=== PATIENT | female | born 1960 | race African-American/Black ===

== ENCOUNTER 2020-11-10 20:19 | Observation (INO) ==
[2020-11-10] MEDS ORDERED: ONDANSETRON 4 MG/2 ML VIAL IV STA (20:51)
[2020-11-10] MEDS ORDERED: ASPIRIN 325 MG TABLET PO STA (20:51)
[2020-11-10] MEDS ORDERED: MORPHINE 4 MG/1 ML VIAL IV STA (20:51)
[2020-11-10] MEDS ORDERED: FUROSEMIDE 100 MG/10 ML VIAL IV STA (20:51)
[2020-11-10] MEDS ORDERED: DILTIAZEM 50 MG/10 ML VIAL IV STA (20:51)
[2020-11-10] MEDS ORDERED: NITROGLYCERIN 2% OINT 1 INCH/GM PACK TOP STA (20:51)
[2020-11-10] MEDS ORDERED: methylPREDNISolone SOD SUC 125 MG/2 ML VIAL IV STA (20:58)
[2020-11-10 21:45] LABS: Basophils % 0.7 % (0.0-0.8); Eosinophils # 0.2 10*3/uL (0.0-0.87); Eosinophils % 2.7 % (0.00-10.9); Hemoglobin 14.9 GM/DL (12.0-16.0); Immature Granulocytes % 0.2 %; Immature Granulocytes Absolute 0.01 #; Lymphocytes # 2.6 10*3/uL (1.4-4.0); Lymphocytes % 43.7 % (21.3-54.2); Mean Corpuscular HGB Conc 33.9 GM/DL (32-36); Mean Corpuscular Volume 90.3 FL (87-102); Mean Platelet Volume 10.2 FL (9.6-12.0); Monocytes % 7.2 % (1.7-12.7); Neutrophils % 45.5 % (38.7-73.9); Platelet Count 307 T/CUMM (130-400); Red Blood Count 4.87 MC/CUMM (3.8-5.5); Red Cell Distribution Width 13.1 % (9.3-17.3)
[2020-11-10 21:54] LABS: Bilirubin,Urine Negative (Negative); Blood, Urine Negative (Negative); Glucose,Urine (UA) Negative (Negative); Ketones,Urine Negative (Negative); Mucus,Urine Occasional /LPF (Occasional); Nitrite,Urine Negative (Negative); Protein,Urine 30 MG/DL; RBC,Urine 3 /HPF (0-4); Squamous Epithelial Cell,Urine Occasional /HPF (0-10); Urine Appearance CLEAR (Clear); Urine Color Yellow (Yellow); Urine Specific Gravity 1.021 (1.001-1.035); WBC,Urine 1 /HPF (0-6)
[2020-11-10 21:55] LABS: PT Patient Result 10.3 SECS (9.8-11.9)
[2020-11-10 22:10] LABS: Alanine Aminotransferase 16 U/L (13-56); Albumin 3.5 G/DL (3.4-5.0); Alkaline Phosphatase 119 U/L (45-117); Aspartate Amino Transferase 17 U/L (0-37); Bilirubin,Total < 0.39 MG/DL (0.2-1.0); Blood Urea Nitrogen 10 MG/DL (7-18); Calcium 8.7 MG/DL (8.5-10.1); Carbon Dioxide 26 MMOL/L (21-32); Estimated Glom Filtration Rate 90 ML/MIN; Glucose 112 MG/DL (74-106); Osmolality,Calculated 276.5 MOS/KG (273-304); Potassium 3.6 MMOL/L (3.5-5.1); Sodium 139 MMOL/L (136-145); Total Protein 8.2 G/DL (5.0-7.5); Troponin I < 0.015 NG/ML (0.00-0.045)
[2020-11-10 22:20] LABS: Eosinophils 2 % (0-10); Lymphocytes 47 % (20-55); Segmented Neutrophils 47 % (50-85); Total Cells Counted 100
[2020-11-10 22:30] LABS: Microcytosis Slight; Platelet Estimate Decreased; Reactive Lymphocytes Few; Smudge Cells Few; Tear Drop Cells 1+
[2020-11-10 23:48] LABS: Barbiturates Screen,Urine Negative (Negative); Benzodiazepines Screen,Urine Negative (Negative); Cannabinoid Screen,Urine Negative (Negative); Opiate Screen,Urine Negative (Negative); Phencyclidine Screen,Urine Negative (Negative)
[2020-11-11] MEDS ORDERED: LABETALOL 20 MG/4 ML SYRINGE IV PRN (00:51)
[2020-11-11] MEDS: ACETAMINOPHEN 325 MG TABLET PO PRN ×2 (03:39→18:54)
[2020-11-11 07:51] LABS: Calcium 8.5 MG/DL (8.5-10.1); Osmolality,Calculated 278.8 MOS/KG (273-304); Potassium 4.1 MMOL/L (3.5-5.1); Risk Ratio 4.89; VLDL CHOLESTEROL 7.4 MG/DL
[2020-11-11] MEDS: ASPIRIN 325 MG TABLET PO SCH (09:34)
[2020-11-11] MEDS: ENOXAPARIN 40 MG/0.4 ML SYRINGE SUBCUT SCH (09:35)
[2020-11-11] MEDS ORDERED: ZALEPLON 5 MG CAPSULE PO PRN (19:16)
[2020-11-11] MEDS ORDERED: ATORVASTATIN 20 MG TABLET PO SCH (21:00)
[2020-11-12 05:42] LABS: Basophils % 0.3 % (0.0-0.8); Hematocrit 36.4 VOL% (35.7-47.0); Hemoglobin 11.7 GM/DL (12.0-16.0); Immature Granulocytes % 0.3 %; Immature Granulocytes Absolute 0.03 #; Lymphocytes # 3.2 10*3/uL (1.4-4.0); Lymphocytes % 33.6 % (21.3-54.2); Mean Corpuscular HGB Conc 32.1 GM/DL (32-36); Mean Corpuscular Volume 92.9 FL (87-102); Mean Platelet Volume 10.3 FL (9.6-12.0); Monocytes % 7.4 % (1.7-12.7); Neutrophils % 58.4 % (38.7-73.9); Platelet Count 351 T/CUMM (130-400); Red Blood Count 3.92 MC/CUMM (3.8-5.5); Red Cell Distribution Width 13.2 % (9.3-17.3); White Blood Count 9.5 T/CUMM (4-12)
[2020-11-12 06:10] LABS: Calcium 8.2 MG/DL (8.5-10.1); Potassium 3.8 MMOL/L (3.5-5.1)
[2020-11-12] MEDS: ENOXAPARIN 40 MG/0.4 ML SYRINGE SUBCUT SCH (09:31)
[2020-11-12] MEDS: ASPIRIN 325 MG TABLET PO SCH (09:31)
[2020-11-12 11:45] VITALS: BP 130/79
== END 2020-11-12 15:15 | disposition home or self-care (01) ==
LOC: N.ED 20:19 → N.EDINP 20:19 → N.4E 11-11 02:48
PROVIDERS: ADMIT Internal Medicine; ATTEND Internal Medicine

== ENCOUNTER 2020-11-12 18:43 | Observation (INO) ==
[2020-11-12] MEDS ORDERED: hydrALAZINE 20 MG/1 ML VIAL IV STA (19:36)
[2020-11-12] MEDS ORDERED: ONDANSETRON 4 MG/2 ML VIAL IV STA ×2 (19:36→20:42)
[2020-11-12 19:56] LABS: Basophils # 0.1 10*3/uL (0.0-0.2); Basophils % 0.6 % (0.0-0.8); Eosinophils % 0.3 % (0.00-10.9); Hematocrit 40.1 VOL% (35.7-47.0); Immature Granulocytes % 0.3 %; Immature Granulocytes Absolute 0.03 #; Lymphocytes # 4.3 10*3/uL (1.4-4.0); Lymphocytes % 43.6 % (21.3-54.2); Mean Corpuscular HGB Conc 32.4 GM/DL (32-36); Mean Corpuscular Volume 91.3 FL (87-102); Mean Platelet Volume 10.6 FL (9.6-12.0); Monocytes % 6.7 % (1.7-12.7); Neutrophils % 48.5 % (38.7-73.9); Platelet Count 387 T/CUMM (130-400); Red Blood Count 4.39 MC/CUMM (3.8-5.5); Red Cell Distribution Width 13.1 % (9.3-17.3); White Blood Count 9.8 T/CUMM (4-12)
[2020-11-12 20:05] LABS: PT Patient Result 10.5 SECS (9.8-11.9)
[2020-11-12 20:11] LABS: Albumin 3.6 G/DL (3.4-5.0); Bilirubin,Total 0.4 MG/DL (0.2-1.0); Calcium 8.2 MG/DL (8.5-10.1); Potassium 3.4 MMOL/L (3.5-5.1); Total Protein 8.1 G/DL (5.0-7.5)
[2020-11-12] MEDS ORDERED: POTASSIUM CHLORIDE 20 MEQ TABLET PO STA (20:26)
[2020-11-12 20:29] LABS: Anisocytosis 1+; Hypochromasia Slight; Lymphocytes 47 % (20-55); Platelet Estimate Adequate; Segmented Neutrophils 47 % (50-85); Total Cells Counted 100
[2020-11-12 20:35] LABS: Bilirubin,Urine Negative (Negative); Blood, Urine Negative (Negative); Glucose,Urine (UA) Negative (Negative); Ketones,Urine Negative (Negative); Mucus,Urine Occasional /LPF (Occasional); Nitrite,Urine Negative (Negative); Protein,Urine Negative; RBC,Urine 2 /HPF (0-4); Squamous Epithelial Cell,Urine Occasional /HPF (0-10); Urine Appearance CLEAR (Clear); Urine Color Yellow (Yellow); Urine Specific Gravity 1.013 (1.001-1.035); WBC,Urine 1 /HPF (0-6)
[2020-11-12] MEDS ORDERED: SODIUM CHLORIDE 0.9% 1,000 ML IV STA (20:42)
[2020-11-12] MEDS ORDERED: ENOXAPARIN 100 MG/ML SYRINGE SUBCUT STA (20:50)
[2020-11-12] MEDS ORDERED: DEXTROSE 50% 25 GM/50 ML VIAL IV PRN (20:53)
[2020-11-12] MEDS ORDERED: ZALEPLON 5 MG CAPSULE PO PRN (20:53)
[2020-11-12] MEDS ORDERED: ONDANSETRON 4 MG/2 ML VIAL IV PRN (20:53)
[2020-11-12] MEDS ORDERED: GLUCAGON 1 MG VIAL IM PRN (20:53)
[2020-11-12] MEDS ORDERED: ATORVASTATIN 20 MG TABLET PO SCH (21:30)
[2020-11-12] MEDS: FLUTICASONE/SALMETEROL 250-50 DISKUS 14 DOSE INH SCH (22:58)
[2020-11-12] MEDS ORDERED: ALBUTEROL 2.5 MG/3 ML NEB RESP TX PRN (23:00)
[2020-11-12] MEDS ORDERED: ACETAMINOPHEN 325 MG TABLET PO PRN (23:36)
[2020-11-13 06:25] LABS: Basophils # 0.1 10*3/uL (0.0-0.2); Basophils % 0.8 % (0.0-0.8); Eosinophils # 0.1 10*3/uL (0.0-0.87); Eosinophils % 0.7 % (0.00-10.9); Hematocrit 35.3 VOL% (35.7-47.0); Hemoglobin 11.5 GM/DL (12.0-16.0); Immature Granulocytes % 0.2 %; Immature Granulocytes Absolute 0.02 #; Lymphocytes # 3.3 10*3/uL (1.4-4.0); Lymphocytes % 40.5 % (21.3-54.2); Mean Corpuscular HGB Conc 32.6 GM/DL (32-36); Mean Corpuscular Volume 91.7 FL (87-102); Mean Platelet Volume 10.3 FL (9.6-12.0); Monocytes % 6.7 % (1.7-12.7); Neutrophils % 51.1 % (38.7-73.9); Platelet Count 316 T/CUMM (130-400); Red Blood Count 3.85 MC/CUMM (3.8-5.5); Red Cell Distribution Width 13.1 % (9.3-17.3); White Blood Count 8.3 T/CUMM (4-12)
[2020-11-13 07:03] LABS: Albumin 2.9 G/DL (3.4-5.0); Calcium 7.9 MG/DL (8.5-10.1); Osmolality,Calculated 286.8 MOS/KG (273-304); Potassium 3.9 MMOL/L (3.5-5.1); Total Protein 6.8 G/DL (5.0-7.5)
[2020-11-13] MEDS ORDERED: ASPIRIN 325 MG TABLET PO SCH (09:00)
[2020-11-13] MEDS ORDERED: LOSARTAN 50 MG TABLET PO SCH (09:00)
[2020-11-13] MEDS: FLUTICASONE/SALMETEROL 250-50 DISKUS 14 DOSE INH SCH (09:25)
[2020-11-13 16:22] VITALS: BP 130/60
== END 2020-11-13 18:45 | disposition home or self-care (01) ==
LOC: N.EDINP 18:43 → N.ED 18:43 → N.4E 22:07
PROVIDERS: ADMIT Internal Medicine; ATTEND Internal Medicine